=== PATIENT | male | born 1985 | race Caucasian/White ===

== ENCOUNTER 2021-04-13 09:34 | Inpatient (IN) | payer OTHER ==
[2021-04-13 09:40] VITALS: BMI 23.8
[2021-04-13 12:28] LABS: CALCIUM 8.4 mg/dL (8.5-10.1)
[2021-04-13 12:29] LABS: ALBUMIN 2.8 g/dl (3.4-5.0); BLOOD UREA NITROGEN 11.7 mg/dL (7-18)
[2021-04-13 12:31] LABS: BILIRUBIN,DIRECT 1.9 mg/dL (0.0-0.2)
[2021-04-13 12:32] LABS: CREATININE 0.9 mg/dL (0.55-1.3)
[2021-04-13 12:33] LABS: BILIRUBIN,TOTAL 2.3 mg/dL (0.2-1); HEMATOCRIT 36.2 % (35.4-49); HEMOGLOBIN 12.4 GM/dL (11.7-16.9); MCH 29.9 pg (25.7-33.7); MCHC 34.3 g/dl (32.0-35.9); RBC 4.17 M/mm3 (4.00-5.60); RDW 15.1 % (11.9-15.9); TOT PROT 5.6 g/dl (6.4-8.2); WHITE BLOOD COUNT 7.1 K/mm3 (4.0-10.0)
[2021-04-13 13:05] LABS: MEAN PLT VOLUME 9.7 fl (7.5-11.1)
[2021-04-13] MEDS ORDERED: SODIUM CHLORIDE 0.9% 1000 ML INFUS.BAG IV ONE ×2 (14:33→15:11)
[2021-04-13 14:41] LABS: MAGNESIUM 2.3 mg/dL (1.8-2.4)
[2021-04-13] MEDS ORDERED: CEPHALEXIN MONOHYDRATE 500 MG CAPSULE (UD) PO ONE (15:20)
[2021-04-13] MEDS ORDERED: CEPHALEXIN MONOHYDRATE 500 MG CAPSULE (UD) ONE (15:59)
[2021-04-13] MEDS ORDERED: ONDANSETRON 4 MG/2 ML VIAL IVPB PRN (21:03)
[2021-04-13] MEDS ORDERED: POTASSIUM CHLORIDE TABS 20 MEQ TABLET.ER (FP) PO ONE (23:51)
[2021-04-14 05:52] VITALS: TEMP 98
[2021-04-14] MEDS ORDERED: methaDONE HCL 10 MG TABLET ONE (08:56)
[2021-04-14] MEDS ORDERED: methaDONE HCL 40 MG DISPERSABLE TABLET ONE (08:56)
[2021-04-14] MEDS ORDERED: ENOXAPARIN NA (PORCINE) 40 MG/0.4 ML DISP.SYRIN SQ SCH (10:00)
[2021-04-14 11:40] LABS: HEMATOCRIT 34.5 % (35.4-49); HEMOGLOBIN 11.9 GM/dL (11.7-16.9); MCH 29.9 pg (25.7-33.7); MCHC 34.4 g/dl (32.0-35.9); MEAN PLT VOLUME 9.8 fl (7.5-11.1); PLATELET COUNT 91 10^3/uL (134-434); RBC 3.97 M/mm3 (4.00-5.60); RDW 15.7 % (11.9-15.9); WHITE BLOOD COUNT 5.8 K/mm3 (4.0-10.0)
[2021-04-14 11:58] LABS: CALCIUM 8.3 mg/dL (8.5-10.1)
[2021-04-14 11:59] LABS: ALBUMIN 2.6 g/dl (3.4-5.0); BLOOD UREA NITROGEN 10.8 mg/dL (7-18)
[2021-04-14 12:02] LABS: CREATININE 0.8 mg/dL (0.55-1.3)
[2021-04-14 12:04] LABS: BILIRUBIN,TOTAL 1.4 mg/dL (0.2-1); TOT PROT 5.3 g/dl (6.4-8.2)
[2021-04-14 13:44] VITALS: BP 116/64; PULSE 52
[2021-04-14] MEDS ORDERED: NITROFURANTOIN MACROCRYSTAL 50 MG CAPSULE (FP) PO ONE (15:30)
[2021-04-17 23:07] LABS: HCV ALPHA 2 MACRO CHART 109 mg/dL (110-276)
== END 2021-04-14 15:54 | disposition left against medical advice (07) | DRG 279 ==
LOC: JER 09:34 → JERBED 15:04 → OBSVTOIN 21:00 → J6S 04-14 00:20
PROVIDERS: ADMIT Internal Medicine; ATTEND Internal Medicine
DX: K72.00 Acute and subacute hepatic failure without coma (principal); E87.6 Hypokalemia; N39.0 Urinary tract infection, site not specified; R16.0 Hepatomegaly, not elsewhere classified; I77.6 Arteritis, unspecified; R74.01 Elevation of levels of liver transaminase levels; B18.2 Chronic viral hepatitis C
CPT/HCPCS: 36415; 76705-TC; 80053; 81003; 82172; 82248; 82977; 83010; 83690; 83735; 83883; 84460; 85027; 86707; 87350; 87517; 87522; 87529; 87902; 93005; 93010; 99285-25; C9803; G0378; U0003; U0005

== ENCOUNTER 2021-06-10 19:59 | Inpatient (IN) | payer OTHER ==
[2021-06-10 23:20] VITALS: BMI 19.9
[2021-06-10] MEDS ORDERED: SULFAMETHOXAZOLE/TRIMETHOPRIM 800MG/160MG D.S. TABLET PO SCH (23:45)
[2021-06-10] MEDS ORDERED: hydrOXYzine PAMOATE 25 MG CAPSULE (FP) PO PRN (23:46)
[2021-06-10] MEDS ORDERED: MENTHOL/PHENOL 1 EACH UD MM PRN (23:46)
[2021-06-10] MEDS ORDERED: ONDANSETRON *ODT* 4 MG TABLET SL PRN (23:46)
[2021-06-10] MEDS ORDERED: MAG HYDROX/AL HYDROX/SIMETH 30 ML UNIT-DOSE CUP PO PRN (23:46)
[2021-06-10] MEDS ORDERED: ACETAMINOPHEN 325 MG TABLET (FP) PO PRN ×2 (23:46)
[2021-06-10] MEDS ORDERED: MAGNESIUM CITRATE 300 ML BOTTLE PO PRN (23:46)
[2021-06-10] MEDS ORDERED: BISMUTH SUBSALICYLATE 524 MG/30 ML PO PRN (23:46)
[2021-06-10] MEDS ORDERED: P-EPHED 60MG/TRIPROLIDI 2.5MG TABLET PO PRN (23:46)
[2021-06-10] MEDS ORDERED: METHOCARBAMOL 500 MG TABLET PO PRN (23:46)
[2021-06-10] MEDS ORDERED: MELATONIN 5 MG TABLETS PO PRN (23:46)
[2021-06-10] MEDS ORDERED: LOPERAMIDE HCL 2 MG CAPSULE PO PRN (23:46)
[2021-06-10] MEDS ORDERED: IBUPROFEN 400 MG TABLET (FP) PO PRN (23:46)
[2021-06-10] MEDS ORDERED: MAGNESIUM HYDROX 2400MG/30ML ORAL SUSPENSION 30 ML CUP PO PRN (23:46)
[2021-06-10] MEDS ORDERED: guaiFENesin 200 MG/10 ML 10 ML UNIT-DOSE CUPS PO PRN (23:46)
[2021-06-11] MEDS ORDERED: methaDONE HCL 10 MG TABLET PO ONE (08:32)
[2021-06-11 08:59] VITALS: BP 125/62; PULSE 71; TEMP 97.3
[2021-06-11] MEDS ORDERED: methaDONE HCL 10 MG TABLET ONE (08:59)
[2021-06-11] MEDS ORDERED: methaDONE HCL 40 MG DISPERSABLE TABLET ONE (08:59)
[2021-06-11] MEDS ORDERED: PRENATAL VITAMINS W/ FOLIC ACID TABLET (FP) PO SCH (10:00)
[2021-06-11] MEDS ORDERED: SULFAMETHOXAZOLE/TRIMETHOPRIM 800MG/160MG D.S. TABLET PO SCH (10:00)
[2021-06-11 12:17] LABS: HEMOGLOBIN 12.4 GM/dL (11.7-16.9); MCH 29.1 pg (25.7-33.7); MCHC 34.3 g/dl (32.0-35.9); MEAN CELL VOLUME 84.7 fl (80-96); MEAN PLT VOLUME 7.8 fl (7.5-11.1); PLATELET COUNT 248 10^3/uL (134-434); RBC 4.26 M/mm3 (4.00-5.60); RDW 14.2 % (11.9-15.9); WHITE BLOOD COUNT 4.7 K/mm3 (4.0-10.0)
[2021-06-11 13:07] LABS: ALBUMIN 3.1 g/dl (3.4-5.0); BLOOD UREA NITROGEN 22.2 mg/dL (7-18); CALCIUM 8.8 mg/dL (8.5-10.1)
[2021-06-11 13:10] LABS: CREATININE 0.9 mg/dL (0.55-1.3)
[2021-06-11 13:12] LABS: BILIRUBIN,TOTAL 0.4 mg/dL (0.2-1); TOT PROT 5.8 g/dl (6.4-8.2)
[2021-06-11] MEDS ORDERED: THIAMINE HCL 100 MG TABLET (FP) PO SCH (22:00)
[2021-06-12] MEDS ORDERED: methaDONE HCL 10 MG TABLET PO SCH (06:00)
== END 2021-06-11 10:00 | disposition home or self-care (01) | DRG 773 ==
LOC: YASAS 19:59 → Y3N 06-11 02:50 → UNDOADMIN 06-11 02:50 → UNDODISIN 06-11 10:00
PROVIDERS: ADMIT Allergy & Immunology; ATTEND Allergy & Immunology
PROC: HZ2ZZZZ Detoxification Services for Substance Abuse Treatment (ICD-10-PCS; principal; 2021-06-11)
DX: F11.20 Opioid dependence, uncomplicated (principal); F10.20 Alcohol dependence, uncomplicated; F14.20 Cocaine dependence, uncomplicated; F12.10 Cannabis abuse, uncomplicated; F17.210 Nicotine dependence, cigarettes, uncomplicated
CPT/HCPCS: 36415; 80053; 85027; 86780; C9803; U0003; U0005

== ENCOUNTER 2023-04-11 10:30 | Inpatient (IN) | payer OTHER ==
[2023-04-11] MEDS ORDERED: ACETAMINOPHEN 325 MG TABLET (FP) PO ONE (11:31)
[2023-04-11] MEDS ORDERED: KETOROLAC TROMETHAMINE 30 MG/1 ML VIAL IM ONE (11:31)
[2023-04-11] MEDS ORDERED: KETOROLAC TROMETHAMINE 15 MG/ML VIAL IVPUSH ONE (11:45)
[2023-04-11] MEDS ORDERED: KETOROLAC TROMETHAMINE 30 MG/1 ML VIAL ONE ×2 (11:46→11:56)
[2023-04-11] MEDS ORDERED: ACETAMINOPHEN 325 MG TABLET (FP) ONE ×2 (11:46→11:56)
[2023-04-11 12:21] LABS: BASO % 0.5 % (0-2.0); EOS % 1.4 % (0-4.5); HEMATOCRIT 36.6 % (35.4-49); HEMOGLOBIN 12.2 GM/dL (11.7-16.9); LYMPH % 15.8 % (8-40); MCH 29.1 pg (25.7-33.7); MCHC 33.5 g/dl (32.0-35.9); MEAN CELL VOLUME 86.8 fl (80-96); MEAN PLT VOLUME 8.2 fl (7.5-11.1); MONO % 5.2 % (3.8-10.2); NEUT % 77.1 % (42.8-82.8); PLATELET COUNT 337 10^3/uL (134-434); RBC 4.21 M/mm3 (4.00-5.60); RDW 13.4 % (11.9-15.9); WHITE BLOOD COUNT 14.8 K/mm3 (4.0-10.0)
[2023-04-11] MEDS ORDERED: VANCOMYCIN 1,000 MG in DEXTROSE 5%-WATER - 250 ML IVPB ONE ×2 (12:30→15:56)
[2023-04-11] MEDS ORDERED: CEFEPIME HCL 1 GM VIAL (RESTRICTED TO ID) IVPB ONE (12:30)
[2023-04-11 12:46] LABS: POTASSIUM 4.2 mmol/L (3.5-5.1)
[2023-04-11] MEDS ORDERED: KETOROLAC TROMETHAMINE 30 MG/1 ML VIAL IVPUSH ONE (12:46)
[2023-04-11 12:48] LABS: CALCIUM 8.8 mg/dL (8.5-10.1)
[2023-04-11 12:49] LABS: ALBUMIN 3.5 g/dl (3.4-5.0); BLOOD UREA NITROGEN 18.5 mg/dL (7-18)
[2023-04-11 12:52] LABS: CREATININE 0.8 mg/dL (0.55-1.3)
[2023-04-11 12:53] LABS: BILIRUBIN,TOTAL 0.5 mg/dL (0.2-1)
[2023-04-11 12:54] LABS: TOT PROT 7.7 g/dl (6.4-8.2)
[2023-04-11] MEDS ORDERED: VANCOMYCIN 1 GRAM (PRE-DOCKED) 1,000 MG/250 ML BAG IVPB ONE (13:10)
[2023-04-11] MEDS ORDERED: CEFEPIME 2 GM/100 ML BAG IVPB ONE ×2 (13:10→22:47)
[2023-04-11] MEDS ORDERED: CEFEPIME HCL/D5W 2 GM/50 ML BAG IVPB ONE (13:11)
[2023-04-11] MEDS ORDERED: CEFEPIME HCL 2 GM VIAL (RESTRICTED TO ID) IVPB SCH (16:00)
[2023-04-11] MEDS ORDERED: methaDONE HCL 10 MG TABLET (FOR DETOX USE ONLY) PO PRN (16:22)
[2023-04-11] MEDS ORDERED: PIPERACILLIN/TAZOB 4.5 GM 4.5 GM in DEXTROSE 5%-WATER 100 ML IVPB SCH (18:00)
[2023-04-11] MEDS ORDERED: HYDROmorphone HCl 2 MG/ML VIAL ONE (19:05)
[2023-04-11] MEDS ORDERED: ACETAMINOPHEN INJECTION 100 ML IVPB ONE (19:06)
[2023-04-11] MEDS: HYDROmorphone HCl 2 MG/ML VIAL IVPUSH PRN (19:13)
[2023-04-11] MEDS: ACETAMINOPHEN 1000 MG/100 ML BAG IVPB PRN (19:13)
[2023-04-11] MEDS: CEFEPIME 2 GM in DEXTROSE 5%-WATER 100 ML IVPB SCH (22:46)
[2023-04-12] MEDS ORDERED: VANCOMYCIN 1 GRAM (PRE-DOCKED) 1,000 MG/250 ML BAG IVPB ONE ×2 (01:00→01:20)
[2023-04-12] MEDS ORDERED: HYDROmorphone HCl 2 MG/ML VIAL ONE (02:24)
[2023-04-12] MEDS: HYDROmorphone HCl 2 MG/ML VIAL IVPUSH PRN (02:33)
[2023-04-12] MEDS ORDERED: CEFEPIME 1 GM/100 ML BAG IVPB ONE ×2 (05:37→13:57)
[2023-04-12] MEDS: CEFEPIME 2 GM in DEXTROSE 5%-WATER 100 ML IVPB SCH ×3 (05:47→22:03)
[2023-04-12 08:42] LABS: BASO % 0.4 % (0-2.0); EOS % 1.8 % (0-4.5); HEMATOCRIT 34.1 % (35.4-49); HEMOGLOBIN 11.2 GM/dL (11.7-16.9); LYMPH % 13.7 % (8-40); MCH 28.5 pg (25.7-33.7); MCHC 32.9 g/dl (32.0-35.9); MEAN CELL VOLUME 86.7 fl (80-96); MEAN PLT VOLUME 8.5 fl (7.5-11.1); MONO % 5.5 % (3.8-10.2); NEUT % 78.6 % (42.8-82.8); PLATELET COUNT 294 10^3/uL (134-434); RBC 3.93 M/mm3 (4.00-5.60); WHITE BLOOD COUNT 17.2 K/mm3 (4.0-10.0)
[2023-04-12 09:00] LABS: BLOOD UREA NITROGEN 14.8 mg/dL (7-18)
[2023-04-12 09:02] LABS: CALCIUM 9.1 mg/dL (8.5-10.1)
[2023-04-12 09:03] LABS: CREATININE 0.8 mg/dL (0.55-1.3); PHOSPHOROUS 2.4 mg/dL (2.5-4.9)
[2023-04-12] MEDS ORDERED: methaDONE HCL 10 MG TABLET PO SCH (10:00)
[2023-04-12] MEDS ORDERED: methaDONE HCL 40 MG DISPERSABLE TABLET ONE (10:08)
[2023-04-12] MEDS ORDERED: methaDONE HCL 10 MG TABLET ONE (10:08)
[2023-04-12] MEDS: ENOXAPARIN NA (PORCINE) 40 MG/0.4 ML DISP.SYRIN SQ SCH (10:11)
[2023-04-12 10:21] VITALS: BMI 24.3
[2023-04-12] MEDS ORDERED: ACETAMINOPHEN INJECTION 100 ML IVPB ONE (10:47)
[2023-04-12] MEDS: ACETAMINOPHEN 1000 MG/100 ML BAG IVPB PRN (10:55)
[2023-04-12] MEDS: HYDROmorphone HCl 2 MG/ML VIAL IVPB PRN ×3 (12:57→21:06)
[2023-04-12] MEDS ORDERED: CEFEPIME 2 GM/100 ML BAG IVPB ONE (14:12)
[2023-04-13] MEDS: HYDROmorphone HCl 2 MG/ML VIAL IVPB PRN ×3 (02:32→13:01)
[2023-04-13] MEDS: CEFEPIME 2 GM in DEXTROSE 5%-WATER 100 ML IVPB SCH (05:39)
[2023-04-13 10:15] LABS: BASO % 0.6 % (0-2.0); EOS % 2.1 % (0-4.5); HEMATOCRIT 34.5 % (35.4-49); HEMOGLOBIN 11.6 GM/dL (11.7-16.9); LYMPH % 16.4 % (8-40); MCHC 33.6 g/dl (32.0-35.9); MEAN CELL VOLUME 86.4 fl (80-96); MONO % 4.3 % (3.8-10.2); NEUT % 76.6 % (42.8-82.8); PLATELET COUNT 299 10^3/uL (134-434); RDW 13.1 % (11.9-15.9); WHITE BLOOD COUNT 7.7 K/mm3 (4.0-10.0)
[2023-04-13] MEDS: ENOXAPARIN NA (PORCINE) 40 MG/0.4 ML DISP.SYRIN SQ SCH (10:15)
[2023-04-13 10:57] LABS: BLOOD UREA NITROGEN 14.3 mg/dL (7-18); CALCIUM 9.6 mg/dL (8.5-10.1)
[2023-04-13 10:58] LABS: ALBUMIN 3.2 g/dl (3.4-5.0)
[2023-04-13 11:00] LABS: CREATININE 0.7 mg/dL (0.55-1.3)
[2023-04-13 11:01] LABS: BILIRUBIN,TOTAL 0.5 mg/dL (0.2-1); TOT PROT 7.3 g/dl (6.4-8.2)
[2023-04-13] MEDS ORDERED: AZTREONAM 1 GM in DEXTROSE 5%-WATER - 50 ML IVPB SCH (11:30)
[2023-04-13] MEDS: VANCOMYCIN/WATER FOR INJ (PEG) 1,000 MG/200 ML BAG IVPB SCH (12:51)
[2023-04-13] MEDS: AZTREONAM 1 GM in DEXTROSE 5%-WATER - 50 ML IVPB SCH ×2 (15:02→22:22)
[2023-04-14] MEDS: KETOROLAC TROMETHAMINE 15 MG/ML VIAL IVPUSH PRN ×3 (04:21→16:45)
[2023-04-14] MEDS: AZTREONAM 1 GM in DEXTROSE 5%-WATER - 50 ML IVPB SCH ×2 (05:58→14:52)
[2023-04-14 07:14] VITALS: RESP 18
[2023-04-14] MEDS: ENOXAPARIN NA (PORCINE) 40 MG/0.4 ML DISP.SYRIN SQ SCH (09:42)
[2023-04-14 10:07] LABS: BASO % 0.6 % (0-2.0); EOS % 3.9 % (0-4.5); HEMATOCRIT 32.6 % (35.4-49); HEMOGLOBIN 11.1 GM/dL (11.7-16.9); LYMPH % 30.3 % (8-40); MCH 29.7 pg (25.7-33.7); MCHC 34.1 g/dl (32.0-35.9); MEAN PLT VOLUME 7.9 fl (7.5-11.1); MONO % 14.2 % (3.8-10.2); PLATELET COUNT 290 10^3/uL (134-434); RBC 3.75 M/mm3 (4.00-5.60); RDW 12.8 % (11.9-15.9); WHITE BLOOD COUNT 3.5 K/mm3 (4.0-10.0)
[2023-04-14 10:19] LABS: POTASSIUM 4.5 mmol/L (3.5-5.1)
[2023-04-14 10:21] LABS: BLOOD UREA NITROGEN 18.7 mg/dL (7-18); CALCIUM 9.4 mg/dL (8.5-10.1)
[2023-04-14 10:24] LABS: CREATININE 0.9 mg/dL (0.55-1.3)
[2023-04-14 10:26] LABS: BILIRUBIN,TOTAL 0.5 mg/dL (0.2-1); TOT PROT 6.8 g/dl (6.4-8.2)
[2023-04-14] MEDS: VANCOMYCIN/WATER FOR INJ (PEG) 1,000 MG/200 ML BAG IVPB SCH (13:16)
[2023-04-14 14:02] VITALS: BP 101/61; PULSE 55; TEMP 98.3
== END 2023-04-14 17:24 | disposition home or self-care (01) | DRG 383 ==
LOC: JERFT 10:30 → JER 10:30 → JERBED 13:52 → OBSVTOIN 15:53 → J5S 04-12 14:23
PROVIDERS: ADMIT Internal Medicine
PROC: 0J9D3ZZ Drainage of Right Upper Arm Subcutaneous Tissue and Fascia, Percutaneous Approach (ICD-10-PCS; principal; 2023-04-12)
DX: L03.113 Cellulitis of right upper limb (principal); F11.20 Opioid dependence, uncomplicated; F14.20 Cocaine dependence, uncomplicated; F17.210 Nicotine dependence, cigarettes, uncomplicated; D72.829 Elevated white blood cell count, unspecified
CPT/HCPCS: 36415; 73090-TC-RT-FY; 80048; 80053; 83735; 84100; 85025; 87070; 87076; 87205; 99285-25; G0378

== ENCOUNTER 2024-04-08 23:30 | Inpatient (IN) | payer OTHER ==
[2024-04-09] MEDS ORDERED: POLYETHYLENE GLYCOL (HEALTHYLAX) 3350 17 GM PACKET PO PRN (04:07)
[2024-04-09] MEDS ORDERED: NICOTINE POLACRILEX 2 MG LOZENGE BC PRN (04:07)
[2024-04-09] MEDS ORDERED: NALOXONE (NARCAN) HCL 4 MG/0.1 ML SPRAY NS PRN (04:07)
[2024-04-09] MEDS ORDERED: BISMUTH SUBSALICYLATE 524 MG/30 ML PO PRN (04:07)
[2024-04-09] MEDS ORDERED: guaiFENesin 600 MG TABLET.ER (FP) PO PRN (04:07)
[2024-04-09] MEDS ORDERED: BENZOCAINE/MENTHOL (CHLORASEPTIC ) LOZENGE MM PRN (04:07)
[2024-04-09] MEDS ORDERED: NICOTINE POLACRILEX 2 MG GUM BUC PRN (04:07)
[2024-04-09] MEDS ORDERED: DICYCLOMINE HCL 10 MG CAPSULE PO PRN (04:07)
[2024-04-09] MEDS ORDERED: ONDANSETRON *ODT* 4 MG TABLET SL PRN (04:07)
[2024-04-09] MEDS ORDERED: P-EPHED 60MG/TRIPROLIDI 2.5MG TABLET PO PRN (04:07)
[2024-04-09] MEDS ORDERED: LOPERAMIDE HCL 2 MG CAPSULE PO PRN (04:07)
[2024-04-09] MEDS ORDERED: BENZONATATE 200 MG CAPSULE PO PRN (04:07)
[2024-04-09] MEDS ORDERED: MAGNESIUM HYDROX 2400MG/30ML ORAL SUSPENSION 30 ML CUP PO PRN (04:07)
[2024-04-09] MEDS ORDERED: MAG HYDROX/AL HYDROX/SIMETH 30 ML UNIT-DOSE CUP PO PRN (04:07)
[2024-04-09] MEDS: CLINDAMYCIN HCL 150 MG CAPSULE (FP) PO SCH (10:30)
[2024-04-09] MEDS: PRENATAL VITAMINS W/ FOLIC ACID TABLET (FP) PO SCH (10:58)
[2024-04-09] MEDS: METHOCARBAMOL 500 MG TABLET PO PRN (12:49)
[2024-04-09] MEDS ORDERED: traZODone HCL 100 MG TABLET (FP) PO SCH (22:00)
[2024-04-09] MEDS: SUVOREXANT 10 MG TABLET PO PRN (22:21)
[2024-04-09] MEDS: GABAPENTIN 100 MG CAPSULE PO PRN (22:22)
[2024-04-09] MEDS: MELATONIN 5 MG TABLETS PO SCH (22:23)
[2024-04-09] MEDS: THIAMINE 100 MG TABLET PO SCH (22:23)
[2024-04-10 08:32] LABS: POTASSIUM 4.1 mmol/L (3.5-5.1)
[2024-04-10 08:34] LABS: CALCIUM 8.5 mg/dL (8.5-10.1)
[2024-04-10 08:35] LABS: ALBUMIN 2.7 g/dl (3.4-5.0); BLOOD UREA NITROGEN 11.7 mg/dL (7-18); HEMATOCRIT 34.4 % (35.4-49); HEMOGLOBIN 11.2 GM/dL (11.7-16.9); MCH 28.9 pg (25.7-33.7); MCHC 32.5 g/dl (32.0-35.9); MEAN CELL VOLUME 88.8 fl (80-96); MEAN PLT VOLUME 8.1 fl (7.5-11.1); PLATELET COUNT 319 10^3/uL (134-434); RBC 3.87 M/mm3 (4.00-5.60); RDW 14.9 % (11.9-15.9); WHITE BLOOD COUNT 4.3 K/mm3 (4.0-10.0)
[2024-04-10 08:38] LABS: CREATININE 0.9 mg/dL (0.55-1.3)
[2024-04-10 08:39] LABS: BILIRUBIN,TOTAL 0.3 mg/dL (0.2-1)
[2024-04-10 08:42] LABS: TOT PROT 5.9 g/dl (6.4-8.2)
[2024-04-10] MEDS: IBUPROFEN 600 MG TABLET (FP) PO PRN (09:31)
[2024-04-10] MEDS: hydrOXYzine PAMOATE 25 MG CAPSULE (FP) PO PRN (17:14)
[2024-04-12 17:20] LABS: URINE APPEARANCE CLEAR; URINE BILIRUBIN NEGATIVE (NEGATIVE); URINE COLOR YELLOW; URINE GLUCOSE (UA) NEGATIVE (NEGATIVE); URINE KETONE NEGATIVE (NEGATIVE); URINE LEUK ESTERASE NEGATIVE (NEGATIVE); URINE NITRITE NEGATIVE (NEGATIVE); URINE PROTEIN NEGATIVE (NEGATIVE); URINE UROBILINOGEN 0.2 mg/dL (0.2-1.0)
[2024-04-12] MEDS: IBUPROFEN 400 MG TABLET (FP) PO PRN (17:36)
[2024-04-12] MEDS: SUVOREXANT 15 MG TABLET PO PRN (21:42)
[2024-04-12] MEDS: ACETAMINOPHEN 325 MG TABLET (FP) PO PRN (21:44)
[2024-04-15] MEDS: METHOCARBAMOL 500 MG TABLET PO PRN (15:33)
[2024-04-16] MEDS: SUVOREXANT 15 MG TABLET PO PRN (21:46)
[2024-04-17] MEDS: BENZOCAINE 20 % GEL TUBE MM PRN (09:59)
[2024-04-19] MEDS: SULFAMETHOXAZOLE/TRIMETHOPRIM 800MG/160MG D.S. TABLET PO SCH (11:53)
[2024-04-19] MEDS: SUVOREXANT 20 MG TABLET PO PRN (21:39)
[2024-04-19] MEDS: BACLOFEN 10 MG TABLET (FP) PO SCH (21:40)
[2024-04-19] MEDS: hydrOXYzine PAMOATE 50 MG CAPSULE (FP) PO PRN (21:41)
[2024-04-20] MEDS ORDERED: LIDOCAINE VISCOUS 2% ORAL/TOP 15 ML UNIT-DOSE CUP MM PRN (08:18)
[2024-04-20] MEDS ORDERED: TUBERCULIN PPD 5 TU/0.1ML VIAL ID ONE ×2 (08:47→12:24)
[2024-04-23] MEDS: SUVOREXANT 20 MG TABLET PO PRN (21:17)
[2024-04-26] MEDS: SUVOREXANT 10 MG TABLET PO PRN (21:14)
[2024-04-30] MEDS: BACITRACIN ZINC 15 GM TUBE TOPICAL OINTMENT TP SCH (12:19)
[2024-05-02] MEDS ORDERED: methaDONE HCL 40 MG DISPERSABLE TABLET PO SCH (12:51)
[2024-05-02] MEDS: SUVOREXANT 20 MG TABLET PO PRN (21:20)
[2024-05-03] MEDS: QUEtiapine FUMARATE 50 MG TABLET PO SCH (21:14)
[2024-05-04 07:07] VITALS: RESP 18
[2024-05-05 06:54] VITALS: BP 106/68; PULSE 68; TEMP 97.5
[2024-05-05] MEDS: NALOXONE (NYS OPIOID OVERDOSE PROGRAM) 4 MG/0.1 ML SPRAY NS SCH (07:03)
== END 2024-05-05 07:00 | disposition home or self-care (01) | DRG 772 ==
LOC: YASAS 23:30 → Y3NR 04-09 11:46 → Y3E 04-11 11:43
PROVIDERS: ADMIT Allergy & Immunology; ATTEND Psychiatry & Neurology Pain Medicine
PROC: HZ42ZZZ Group Counseling for Substance Abuse Treatment, Cognitive-Behavioral (ICD-10-PCS; principal; 2024-04-09)
DX: F11.20 Opioid dependence, uncomplicated (principal); F14.20 Cocaine dependence, uncomplicated; F17.210 Nicotine dependence, cigarettes, uncomplicated; F19.282 Other psychoactive substance dependence with psychoactive substance-induced sleep disorder; F19.280 Other psychoactive substance dependence with psychoactive substance-induced anxiety disorder; F32.A Depression, unspecified; K02.9 Dental caries, unspecified; K05.10 Chronic gingivitis, plaque induced
CPT/HCPCS: 36415; 80053; 81003; 85027; 86780; 93005; 93010; J0475